=== PATIENT | male | born 1965 | race Caucasian/White ===

== ENCOUNTER 2019-02-22 15:57 | Emergency (ER) | payer SELFPAY ==
[~2019-02-22] VITALS: Ht 188 cm; Wt 165.1 kg
[2019-02-22 16:05] VITALS: BP 167/81; PULSE 107; RESP 20; Ht 188 cm; Wt 165.1 kg
--- NOTE | 2019-02-23 19:52 | ERD ---
ER Documentation Chief Complaint Chief Complaint left sided arm and facial numbness, slurred speech today at 1530 HPI The patient is a 53-year-old male, presenting to the ER because of left upper extremity, left facial numbness and slurred speech that began around 3:30 PM. He walked into the emergency department, seen by triage nurse who activated the code stroke at 4:07 PM. The patient was transported immediately from triage to radiology brain CT scan. However he came back and declined the brain CT and wanted to leave AGAINST MEDICAL ADVICE He is awake, alert, competent and is able to make his decision. He did not give a reason why he wanted to leave AGAINST MEDICAL ADVICE. I advised him that this is a life-threatening condition and he need to have a brain CT and evaluation by stroke neurologist but he declined. The patient signed out AGAINST MEDICAL ADVICE. Risks, benefits, alternatives were explained to the patient. Risks include but not limited to and permanent disability Unable to obtain complete history and physical because he was unwilling to co operate with the history and the physical ROS All systems reviewed and are negative except as per history of present illness. Physical Exam Vitals Vital Signs Date Temp Pulse Resp B/P (MAP) Pulse Ox O2 O2 Flow FiO2 Time Delivery Rate 02/22/19 98.5 107 20 167/81 98 16:05 (109) Physical Exam Unable to perform because patient did not cooperate Procedures/MDM MEDICAL MAKING DECISION: The patient is a 53-year-old male, presenting with acute left upper extremity numbness and weakness, acute left facial numbness and slurred speech that is concerning for acute stroke The differential diagnoses considered include but are not limited to TIA, stroke, anxiety attack, panic attack, psychiatric illness Departure Diagnosis: Primary Impression: Left arm weakness Additional Impressions: Left facial numbness Slurred speech Condition: Stable Comments The patient signed out AGAINST MEDICAL ADVICE. Risks, benefits, alternatives were explained to the patient. Risks include but not limited to and permanent disability He walked out of the ER w/o difficulty Disclaimer: Inadvertent spelling and grammatical errors are likely due to EHR/dictation software use and do not reflect on the overall quality of patient care. Also, please note that the electronic time recorded on this note does not necessarily reflect the actual time of the patient encounter. DIDI GOODE MD February 23, 2019 19:52
== END 2019-02-22 17:25 | disposition home or self-care (01) ==
LOC: E/R 15:57
DX: R20.0 Anesthesia of skin (principal); R53.1 Weakness; R47.81 Slurred speech
CPT/HCPCS: 99283